=== PATIENT | male | born 1950 | race Caucasian/White ===

== ENCOUNTER 2022-12-19 06:50 | Outpatient (CLI) | payer MEDICARE, SELFPAY | END 2022-12-19 06:51 | disposition home or self-care (01) | LOC: INJ CL 06:53 | PROVIDERS: PCP Family Medicine; Visit Provider Family Medicine | DX: M54.16 Radiculopathy, lumbar region (principal); M51.36 Other intervertebral disc degeneration, lumbar region | CPT/HCPCS: 62323; J0702; Q9966 ==

== ENCOUNTER 2023-11-06 08:30 | Outpatient (RCR) | payer MEDICARE, SELFPAY ==
--- NOTE | 2023-11-02 10:15 | PT.OPEX ---
[facility] [place] [facility] PT [facility] Outpatient Eval Start: 10/31/23 14:04 Freq: Status: Active Protocol: Document 10/31/23 14:04 NLR (Rec: 10/31/23 17:03 NLR [id number]) E-signed By Nilam Pelayo DPT Physical Therapy Outpatient Evaluation Insurance Information Insurance Name Medicare B,[place]are Insurance Information/Comments are Medicare Advantage; [place] Medical Diagnosis S46.211A Strain of muscle, fascia and tendon of biceps, right arm (rupture of long head of biceps tendon) Treating Diagnosis M25.511 Pain in Right Shoulder M25.611 Stiffness in Right Shoulder M25.512 Pain in Left Shoulder M25.612 Stiffness in Left Shoulder Referring MD Barrie Snow MD Subjective Subjective Patient reports that he was pulling a dock off the water about three months ago when he felt a pop and had sudden pain and bruising in his R upper arm. He notes he had a similar injury to his left shoulder about 20 years ago. Because the left shoulder recovered without therapy, he didn't initiate therapy until now but he is frustrated that the right shoulder has not improved, has gotten worse and his left shoulder now hurts as well. Prior to this injury his shoulders were doing well and he was very active using arms to build things and fish, etc. Pain Comments Pain is worse R>L, pain is achy mostly, but sometimes still sharp, protraction/ retraction hurt, ER hurts, reaching overhead hurts. No N/ T, comes and goes, worse with movement and sleeping on his side. Uses Naproxen for degenerative spine/sciatic nerve pinch/herniated disk. Has been using for shoulders and it takes the edge off. 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 Elbows, hands and wrist WFL. Strength Grossly 4+/5 at shoulder, however B serratus anterior 3/ 5 with moderate scapular abduction and dyskinesia Palpation Notable lump in right biceps and unable to palpate long head of biceps on the right Posture Forward rounded shoulders, FHON Other/Pertinent Objective -Forward rounded shoulders, FHON -Notable lump in right biceps and unable to palpate long head of biceps on the right -Right shoulder elevation limited to 160 degrees, left shoulder limited to 170 degrees, B shoulder IR limited to 30 degrees with difficulty reaching into back pocket. Elbows, hands and wrist WFL. -Grossly 4+/5 at shoulder, however B serratus anterior 3/ 5 with moderat scapular abduction and dyskinesia Functional Test Performed & Score SPADI Pain score 38/50 (76% Impaired); Disability score 58 /80 (73% impaired) Assessment Assessment/Impression Patient is a very pleasant 73 year old male with three month history of R>L shoulder pain following a pulling action rupture of the long head of his R biceps now with resultant forward rounded posture, B shoulder pain (left compensation and poor mechanics), abducted scapula with gross weakness B serratus anterior, stiffness with elevation R>L. Primary Functional Limitations Unable to lay on either side due to pain, but also difficult sleeping on back due to shoulder and back pain. Unable to do normal lifting overhead activities without increase in pain and he is an active fisherman and builder. Plan of Care Rehabilitation Potential Good Rehabilitation Potential Comments He recovered from a similar injury 20 years ago, and is motivated to do the work to get it better as he is very active and wants to remain active. Physical Therapy Goals 1. Patient will be independent in HEP as prescribed, modified and progressed by physical therapist by 01/29/24. 2. Patient will tolerate sleeping on R side for up to four hours per night by 01/29/24 . 3. Patient will be able to reach overhead with good strength and no increase in pain past 12/01 to allow him to return to his active retired lifestyle of building and fishing by 01/29/24. Coordination/Communication With Referral Source Treatment Plan/Direct Interventions Iontophoresis,Joint Mobilization,Manual Therapy, Neuromuscular Re-ed,Self-Care/ Home Management,Therapeutic Exercises,Other - See Comments Direct Interventions Clarification Dry needling Comments Frequency/Duration 1-2 visits per week for 10-12 weeks Evaluation Billing Untimed Code Treatment Minutes 20 Complexity Low Certification Information Initial Certification Date 10/31/23 Ending Certification Date 01/29/24 Provider Signature Shows Agreement With POC & Medical Necessity Physician Signature & Date Requested Please Sign/Date Here Physician Comment/Change : Physician NPI Number #
== END 2024-03-05 23:59 | disposition home or self-care (01) ==
PROVIDERS: PCP Family Medicine; Visit Provider Orthopaedic Surgery Sports Medicine
DX: S46.211A Strain of muscle, fascia and tendon of other parts of biceps, right arm, initial encounter (principal); M25.511 Pain in right shoulder; M25.611 Stiffness of right shoulder, not elsewhere classified; M25.512 Pain in left shoulder; M25.612 Stiffness of left shoulder, not elsewhere classified; Z51.89 Encounter for other specified aftercare
CPT/HCPCS: 97110; 97112; 97140; 97161

== ENCOUNTER 2024-10-28 09:08 | Outpatient (CLI) | payer MEDICARE, SELFPAY | END 2024-10-28 09:09 | disposition home or self-care (01) | LOC: INJ CL 09:10 | PROVIDERS: PCP Family Medicine; Visit Provider Family Medicine | DX: M54.16 Radiculopathy, lumbar region (principal); M51.369 Other intervertebral disc degeneration, lumbar region without mention of lumbar back pain or lower extremity pain | CPT/HCPCS: 62323; J0702; Q9966 ==

== ENCOUNTER 2024-12-16 07:50 | Outpatient (CLI) | payer MEDICARE, SELFPAY | END 2024-12-16 07:51 | disposition home or self-care (01) | LOC: INJ CL 07:51 | PROVIDERS: PCP Family Medicine; Visit Provider Family Medicine | DX: M54.16 Radiculopathy, lumbar region (principal); M48.062 Spinal stenosis, lumbar region with neurogenic claudication | CPT/HCPCS: 64483; J1100; Q9966 ==